=== PATIENT | male | born 1945 | race Two or more races ===

== ENCOUNTER 2020-03-06 09:02 | Day surgery (SDC) | payer MEDICARE, OTHER ==
[~2020-03-06] VITALS: Ht 172.7 cm; Wt 86.2 kg
[~2020-03-06 09:02] MED LIST: AMARYL1 MG ORAL; COREG6.25 MG ORAL; FLOMAX0.4 MG ORAL; PROCARDIA XL30 MG ORAL; PROSCAR5 MG ORAL; RENVELA0.8 GM ORAL
[2020-03-06 09:58] VITALS: BP 195/88
[2020-03-06] MEDS ORDERED: LR 1000ml 1,000 ML IVLG SCH (10:54)
[2020-03-06] MEDS ORDERED: DiphenhydrAMINE 50mg/ml Inj IVP PRN (11:00)
[2020-03-06] MEDS ORDERED: Atropine Inj 1mg/10ml Syr IV PRN (11:00)
[2020-03-06] MEDS ORDERED: Midazolam 2mg/2ml Inj IVP PRN (11:00)
[2020-03-06] MEDS ORDERED: fentaNYL 100 mcg/2 mL IV PRN (11:00)
--- NOTE | 2020-03-06 11:00 | Anethesia Preoperative Eval ---
Anesthesia Pre-op PMH/ROS General Date of Evaluation: Mar 06, 2020 Time of Evaluation: 10:56 Anesthesiologist: vickie ASA Score: ASA 4 Mallampati Score Class I : Soft palate, uvula, fauces, pillars visible Class II: Soft palate, uvula, fauces visible Class III: Soft palate, base of uvula visible Class IV: Only hard plate visible Mallampati Classification: Class II Surgeon: gil Diagnosis: blood in stool Surgical Procedure: egd/colonoscopy Anesthesia History: none Social History: smoking - former smoker Family History: no anesthesia problems Allergies: Coded Allergies: IODINE (Verified Allergy, Severe, Hives, 03/06/20) Medications: see eMAR Patient NPO?: Yes Past Medical History Cardiovascular: Reports: HTN, other - hypercholesterolemia Gastrointestinal/Genitourinary: Reports: GERD, ESRD, other - prostate cancer Endocrine: Reports: DM HEENT: Reports: other - retinopathy Hematology/Immune: Reports: anemia Anesthesia Pre-op Phys. Exam Physician Exam Last Vital Signs Date Time Temp Pulse Resp B/P (MAP) Pulse Ox O2 Delivery O2 Flow Rate FiO2 03/06/20 09:58 96.4 81 18 195/88 95 Room Air Constitutional: NAD Neurologic: CN 2-12 intact Cardiovascular: RRR Respiratory: CTA Gastrointestinal: S/NT/ND Airway Exam Mallampati Score: Class II MO: limited Neck: flexible TMD: 2fb ROM: limited Anesthesia Pre-op A/P Labs Microbiology Date/Time Source Procedure Growth Status 03/04/20 10:00 Nasopharynx Coronavirus COVID-19 PCR ([facility]) - Final Complete Chemistry Test 03/06/20 09:50 Potassium Level 5.2 MMOL/L (3.5-5.1) H Risk Assessment & Plan Assessment: asa4 Plan: mac Status Change Before Surgery: No Pre-Antibiotics Drug: Lor Sandy MD Mar 06, 2020 11:00
[2020-03-06] MEDS ORDERED: Lidocaine 1% MPF 10mg/ml 5ml ONE (11:30)
--- NOTE | 2020-03-06 11:39 | Short Stay Surgery H&P ---
History of Present Illness History of Present Illness Chief Complaint see typed H&P HPI Jese Stinson is a 74 year old male who was admitted on for Blood In Stool Patient History Allergies: Coded Allergies: IODINE (Verified Allergy, Severe, Hives, 03/06/20) Medication History Scheduled Carvedilol (Coreg), 6.25 MG ORAL EVERY 12 HOURS, (Reported) Finasteride* (Proscar*), 5 MG ORAL DAILY, (Reported) Glimepiride* (Amaryl*), 1 MG ORAL BEFORE BREAKFAST, (Reported) Nifedipine Xl* (Procardia Xl*), 30 MG ORAL DAILY, (Reported) Sevelamer Carbonate* (Renvela*), 800 MG ORAL THREE TIMES A DAY, (Reported) Tamsulosin HCl (Flomax), 0.4 MG ORAL DAILY, (Reported) Physical Exam Vital Signs Last Vital Signs Date Time Temp Pulse Resp B/P (MAP) Pulse Ox O2 Delivery O2 Flow Rate FiO2 03/06/20 09:58 96.4 81 18 195/88 95 Room Air Labs Laboratory Tests Test 03/06/20 09:50 Potassium Level 5.2 MMOL/L (3.5-5.1) H Plan Attestation Are the patient's medical conditions optimized for surgery? Brijesh Puri MD Mar 06, 2020 11:39
--- NOTE | 2020-03-06 11:39 | Pre-Procedure Note/Attestation ---
Pre-Procedure Note/Attestation Complete Prior to Procedure Planned Procedure: not applicable Procedure Narrative: esophagogastroduodenoscopy colon Indications for Procedure Pre-Operative Diagnosis: heme (+) Attestation I attest that I discussed the nature of the procedure; its benefits; risks and complications; and alternatives (and the risks and benefits of such alternatives ), prior to the procedure, with the patient (or the patient's legal outbound sales representative). I attest that, if there was a reasonable possibility of needing a blood transfusion, the patient (or the patient's legal outbound sales representative) was given the [facility] standardized written summary, pursuant to the Matt Delfino Blood Safety Act ([place] Health and Safety Code # 1645, as amended). I attest that I re-evaluated the patient just prior to the surgery and that there has been no change in the patient's H&P, except as documented below: Brijesh Puri MD Mar 06, 2020 11:39
--- NOTE | 2020-03-06 12:34 | Endoscopy Procedure Note ---
Endoscopy Procedure Note General Indication for Procedure: heme (+) Procedures Performed: EGD, colonoscopy Operative Findings/Diagnosis: ersive fredrick, R/L severe tics, dim TV polyp - bx, 1 cm polyps sig/rect, I I Specimen: yes Pt Tolerated Procedure Well: Yes Estimated Blood Loss: none Anesthesia Anesthesiologist: Varun Martinez Anesthesia: MAC Medications Medication Given: see anesthesia record Inserted Devices Implant(s) used?: No GI Core Measures 50 yrs or older w/o bx or poly: Not Applicable 10yrs. F/U recommended: Not Applicable Brijesh Puri MD Mar 06, 2020 12:34
--- NOTE | 2020-03-06 12:36 | Brief Operative Note ---
Immediate Post Operative Note Operative Note Chief Complaint: Heme (+) Pre-op Diagnosis: heme (+) Procedure: esophagogastroduodenoscopybx, colon/inj/bx Post-op Diagnosis: erosive gastritis, R>L severe diverticulosis, dim TV polyp-bx, ped 1 cm sig polyp at 35, Ink a 35, flat 1 cm rectal polyp at 10 cm, Poor prep, unable to do polypectomy Surgeon: gil Anesthesiologist: yenny prather Anesthesia: MAC Specimen: yes Complications: none Condition: stable Fluids: per anesthesia Estimated Blood Loss: none Drains: none Implant(s) used?: No Brijesh Puri MD Mar 06, 2020 12:36
[2020-03-06 12:40] VITALS: BP 163/57
[2020-03-06 12:45] VITALS: BP 160/55
[2020-03-06 12:55] VITALS: BP 174/53
[2020-03-06 13:00] VITALS: BP 152/75
--- NOTE | 2020-03-06 13:52 | Immediate Post-Op Evaluation ---
Immediate Post-Op Evalulation Immediate Post-Op Evalulation Procedure: egd/colonoscopy w/bx Date of Evaluation: Mar 06, 2020 Time of Evaluation: 12:52 IV Fluids: 350ml 0.9ns Blood Products: none Estimated Blood Loss: negligible Blood Pressure Systolic: 163 Blood Pressure Diastolic: 57 Pulse Rate: 77 Respiratory Rate: 18 O2 Sat by Pulse Oximetry: 100 Temperature (Fahrenheit): 97.7 Pain Score (1-10): 0 Nausea: No Vomiting: No Complications none Patient Status: awake, reacts, patent Drug: Lor Sandy MD Mar 06, 2020 13:52
[2020-03-06 13:53] VITALS: BP 152/75
--- NOTE | 2020-03-06 13:54 | 48 Hour Post Anesthesia Eval ---
Post Anesthesia Evaluation Procedure: egd/colonoscopy w/bx Date of Evaluation: Mar 06, 2020 Time of Evaluation: 12:54 Blood Pressure Systolic: 152 0: 75 Pulse Rate: 80 Respiratory Rate: 18 Temperature (Fahrenheit): 97.7 O2 Sat by Pulse Oximetry: 100 Airway: patent Nausea: No Vomiting: No Pain Intensity: 0 Hydration Status: adequate Cardiopulmonary Status: stable Mental Status/LOC: patient returned to baseline Post-Anesthesia Complications: none Follow-up care needed: N/A Lor José MD Mar 06, 2020 13:53
--- NOTE | 2020-03-06 22:45 | Procedure Note ---
DATE OF PROCEDURE: 03/06/2020 GASTROENTEROLOGY PROCEDURE REPORT PROCEDURE: Upper gastrointestinal endoscopy with biopsy as well as colonoscopy with biopsy. SURGEON: Brijesh Puri MD. ANESTHESIA: Lor Bello MD. PRE-ENDOSCOPIC DIAGNOSIS: Heme-positive stools. POST-ENDOSCOPIC DIAGNOSES: 1. Erosive gastritis, status post biopsy. 2. Severe right-sided and left-sided colonic diverticulosis. 3. Internal hemorrhoids. 4. Two polyps in the sigmoid colon, which could not be removed due to poor colonic preparation. 5. Very poor colonic preparation making evaluation of small polyps not possible. DESCRIPTION OF PROCEDURE: The procedure, its risks, indications, alternatives, and possible complications were explained to the patient and an informed consent was obtained. The patient was then sedated in the left lateral decubitus position. A diagnostic upper endoscope was introduced through oropharynx and advanced to the duodenum without difficulty. The endoscope was then gradually withdrawn and the mucosa examined carefully. Examination of the upper gastrointestinal mucosa revealed erosive gastritis with small bits of blood seen in the stomach. Biopsies of the antrum were sent to pathology for review. Thereafter, the endoscope was removed. A rectal exam was done. The colonoscope was introduced into the rectum and advanced. It was clear at the beginning of the colonoscopy, but the colonic preparation was unacceptably low for detection of polyps. However, since the question of the colonic malignancy was a critical issue to discover, the colonoscope was pushed through and advanced to the cecum. The cecum was identified by the appearance of the ileocecal valve. The colonoscope was then gradually withdrawn and mucosa examined carefully. Examination of the colonic mucosa revealed severe right-sided and left-sided diverticulosis. In the region of the transverse colon, there was a diminutive polyp seen, which was biopsied and removed. The preparation was worse in the sigmoid colon where in this area was abundance of some semisolid stool. Within the stool, 2 polyps were seen, each approximately 1 centimeter. One was pedunculated and at approximately 30 to 35 cm from anal verge. The other one was about 10 cm from the anal verge and it was more flat. These polyps were felt not to be removed safely at this time due to abundant stool in the area. The proximal polyp was injected with Francisca ink nearby at 35 cm to jake for future removal. Retroflexed view of the rectum could not be done due to the laxity of the anus. However, anterograde views did not show any lesions. The patient was sent to recovery in good condition. COMPLICATIONS: None. ASSESSMENT: This examination shows erosive gastritis. The colonoscopy evaluation is significantly limited due to very poor colonic preparation. However, large cancers or mass lesions or constricting lesions were ruled out with this examination. Should the patient be able, he should have a repeat colonoscopy at a later date with more aggressive preparation to have the 2 distal colonic polyps removed. The remainder of the colon can also be evaluated for small polyps, which could have been missed on today's examination. RECOMMENDATIONS: 1. Follow up biopsy results. 2. Check and treat Helicobacter pylori if positive. 3. Long-term bowel regimen. 4. Outpatient followup. 5. Repeat colonoscopy at a later date. Brijesh Puri M.D. DR: YAIMA JOB#: [id number] CC: [email or web address]
== END 2020-03-06 13:20 | disposition home or self-care (01) ==
LOC: GAS 09:02
DX: K92.1 Melena (principal); K57.90 Diverticulosis of intestine, part unspecified, without perforation or abscess without bleeding; K64.8 Other hemorrhoids; K63.5 Polyp of colon; K31.9 Disease of stomach and duodenum, unspecified; K29.70 Gastritis, unspecified, without bleeding; D12.3 Benign neoplasm of transverse colon; Z91.041 Radiographic dye allergy status; Z79.899 Other long term (current) drug therapy; Z87.891 Personal history of nicotine dependence; E78.00 Pure hypercholesterolemia, unspecified; K21.9 Gastro-esophageal reflux disease without esophagitis; I12.0 Hypertensive chronic kidney disease with stage 5 chronic kidney disease or end stage renal disease; E11.22 Type 2 diabetes mellitus with diabetic chronic kidney disease; N18.6 End stage renal disease; Z85.46 Personal history of malignant neoplasm of prostate
CPT/HCPCS: 36415; 43239; 45380; 45381; 82962; 84132; 94003; J0360; J2704; J7030; 94150